=== PATIENT | female | born 1980 | race Hispanic/Latino ===

== ENCOUNTER 2016-09-24 06:45 | Emergency (ER) | payer OTHER ==
[~2016-09-24] VITALS: Ht 144.8 cm; Wt 68.2 kg
[~2016-09-24 06:45] MED LIST: NORCO1 TA1 PO; PERCOCET1 TA2 PO
[2016-09-24 07:26] LABS: HEMATOCRIT 27.5 % (37.0-47.0); HEMOGLOBIN 8.4 g/dl (12.0-16.0); IMMATURE GRANULOCYTES 0.8 % (0.0-1.0); MEAN CELL VOLUME 72.8 fL CALC (80.0-100.0); MEAN CORPUSCULAR HGB 22.2 pG CALC (26.0-32.0); MEAN CORPUSCULAR HGB CONC 30.5 g/L CALC (32.0-36.0); NEUT# 4.27 thou/uL (2.00-7.15); RED BLOOD COUNT 3.78 mill/uL (4.20-5.60); RED CELL DISTRI WIDTH 18.2 % (11.5-15.5)
[2016-09-24 07:43] LABS: ALBUMIN 4.2 g/dL (3.2-5.0); ALKALINE PHOSPHATASE 87 u/l (38-126); ANION GAP 18 (6-22 (CALC)); BILIRUBIN, TOTAL 0.2 mg/dL (0.0-1.4); BUN 6 mg/dL (7-17); BUN/CREATININE RATIO 10 (12-20 (CALC)); CALCIUM 8.8 mg/dL (8.4-10.2); CARBON DIOXIDE 21 mmol/l (22-30); CHLORIDE 115 mmol/l (95-108); CREATININE 0.6 mg/dL (0.5-1.0); ETHYL ALCOHOL 264 mg/dl (0-30); GFR > 60 ML/MIN (>=60 (CALC)); GFR FOR AFR.AMER. > 60 ML/MIN (>=60 (CALC)); GLUCOSE 106 mg/dL (65-105); POTASSIUM 3.8 mmol/l (3.5-5.1); SGOT/AST 30 u/l (14-36); SGPT/ALT 24 u/l (9-52); SODIUM 150 mmol/l (137-146); TOTAL PROTEIN 7.7 g/dL (6.3-8.2)
[2016-09-24] MEDS ORDERED: MOTRIN800 MG PO (09:09)
[2016-09-24] MEDS ORDERED: LORTAB 5-325 MG1 TAB PO (09:09)
[2016-09-24] MEDS ORDERED: FLEXERIL PO (09:09)
[2016-09-24 10:21] VITALS: BP 130/70
== END 2016-09-24 10:22 | disposition home or self-care (01) | DRG 897 ==
LOC: ED 06:45
PROVIDERS: Emergency Medicine
DX: F10.129 Alcohol abuse with intoxication, unspecified (principal); S32.029A Unspecified fracture of second lumbar vertebra, initial encounter for closed fracture; S32.039A Unspecified fracture of third lumbar vertebra, initial encounter for closed fracture; Y90.8 Blood alcohol level of 240 mg/100 ml or more; V47.6XXA Car passenger injured in collision with fixed or stationary object in traffic accident, initial encounter; Y92.488 Other paved roadways as the place of occurrence of the external cause
CPT/HCPCS: Q9967

== ENCOUNTER 2017-07-31 02:46 | Emergency (ER) | payer SELFPAY ==
[~2017-07-31] VITALS: Ht 144.8 cm; Wt 75.0 kg
[~2017-07-31 02:46] MED LIST changes: +FLEXERIL PO; +LORTAB 5-325 MG1 TAB PO; +MOTRIN800 MG PO
[2017-07-31 04:50] VITALS: BP 136/82
== END 2017-07-31 05:00 | disposition home or self-care (01) | DRG 605 ==
LOC: ED 02:46
DX: S80.02XA Contusion of left knee, initial encounter (principal); S20.229A Contusion of unspecified back wall of thorax, initial encounter; R55 Syncope and collapse; D64.9 Anemia, unspecified; E11.9 Type 2 diabetes mellitus without complications; F41.9 Anxiety disorder, unspecified; F17.210 Nicotine dependence, cigarettes, uncomplicated; W19.XXXA Unspecified fall, initial encounter; Z53.20 Procedure and treatment not carried out because of patient's decision for unspecified reasons

== ENCOUNTER 2019-03-29 01:13 | Emergency (ER) | payer SELFPAY ==
[~2019-03-29] VITALS: Ht 144.8 cm; Wt 90.0 kg
[2019-03-29 01:40] LABS: HEMATOCRIT 40.5 % (37.0-47.0); HEMOGLOBIN 13.5 g/dl (12.0-16.0); IMMATURE GRANULOCYTES 0.9 % (0.0-5.0); MEAN CELL VOLUME 87.9 fL CALC (80.0-100.0); MEAN CORPUSCULAR HGB 29.3 pG CALC (26.0-32.0); MEAN CORPUSCULAR HGB CONC 33.3 g/L CALC (32.0-36.0); NEUT# 6.62 thou/uL (2.00-7.15); RED BLOOD COUNT 4.61 mill/uL (4.20-5.60); RED CELL DISTRI WIDTH 15.5 % (11.5-15.5)
[2019-03-29 01:55] LABS: ALBUMIN 4.6 g/dL (3.2-5.0); ALKALINE PHOSPHATASE 97 u/l (38-126); ANION GAP 16 (6-22 (CALC)); BUN 11 mg/dL (7-17); BUN/CREATININE RATIO 21 (12-20 (CALC)); CARBON DIOXIDE 24 mmol/l (22-30); CHLORIDE 108 mmol/l (95-108); CREATININE 0.5 mg/dL (0.5-1.0); ETHYL ALCOHOL 240 mg/dl (0-30); GFR > 60 ML/MIN (>=60 (CALC)); GFR FOR AFR.AMER. > 60 ML/MIN (>=60 (CALC)); POTASSIUM 3.3 mmol/l (3.5-5.1); SGOT/AST 32 u/l (14-36); SODIUM 145 mmol/l (137-146); TOTAL PROTEIN 8.4 g/dL (6.3-8.2)
[2019-03-29 01:56] LABS: BILIRUBIN, TOTAL 0.4 mg/dL (0.0-1.4)
[2019-03-29 02:07] LABS: MYOGLOBIN 70 ng/mL (0 - 62)
[2019-03-29 04:31] LABS: URINE BILIRUBIN - DIPSTICK NEGATIVE (NEGATIVE); URINE BLOOD DIPSTICK NEGATIVE (NEGATIVE); URINE COLOR YELLOW; URINE GLUCOSE - DIPSTICK NEGATIVE (NEGATIVE); URINE KETONE NEGATIVE (NEGATIVE); URINE LEUK ESTERASE NEGATIVE (NEGATIVE); URINE NITRITE - DIPSTICK NEGATIVE (Negative); URINE PROTEIN - DIPSTICK NEGATIVE (NEG-TRACE); URINE UROBILINOGEN - DIPSTICK 0.2 E.U./dL (0.2)
[2019-03-29 04:35] LABS: COCAINE NEGATIVE (NEGATIVE); METHADONE NEGATIVE (NEGATIVE); TETRAHYDROCANNABIONOL POSITIVE (NEGATIVE)
[2019-03-29 04:36] LABS: BARBITURATES NEGATIVE (NEGATIVE); OXCYCODONE NEGATIVE (NEGATIVE); TRICYLIC ANTIDEPRESSANTS NEGATIVE (NEGATIVE)
[2019-03-29 05:00] VITALS: BP 100/52
== END 2019-03-29 05:10 | disposition home or self-care (01) | DRG 897 ==
LOC: ED 01:13
PROVIDERS: Emergency Medicine
DX: F10.129 Alcohol abuse with intoxication, unspecified (principal); F12.90 Cannabis use, unspecified, uncomplicated; E11.9 Type 2 diabetes mellitus without complications; F17.210 Nicotine dependence, cigarettes, uncomplicated

== ENCOUNTER 2023-06-10 18:56 | Observation (INO) | payer OTHER ==
[~2023-06-10] VITALS: Ht 144.8 cm; Wt 76.9 kg
[2023-06-10] VITALS (9 sets, daily range): BP systolic 102–129; BP diastolic 41–82
--- NOTE | 2023-06-10 19:10 | NUR ---
PATIENT TO RM 10 WITH CHARGE NURSE FOR TRIAGE WITH STEADY GAIT AT THIS TIME.
--- NOTE | 2023-06-10 19:15 | NUR ---
CHARGE NURSE NOTIFIED MD OF PATIENT STATUS AFTER STATED COMPLAINTS AND STATUS, MD NOTIFIES TO CALL STROKE ALERT.
--- NOTE | 2023-06-10 19:16 | NUR ---
STROKE ALERT CALLED AT THIS TIME.
--- NOTE | 2023-06-10 19:17 | NUR ---
ADMINISTRATIVE UNDERWRITER ACCOMPANYING STROKE ALERT AT THIS TIME, PATIENT TRANSPORTED TO CT AT THIS TIME, PATIENT UPDATED ON CONTINUOUS PLAN OF CARE, PATIENT VERBALIZES UNDERSTANDING, REMAINS ALERT AND ORIENTED AT THIS TIME.
--- NOTE | 2023-06-10 19:30 | NUR ---
INITIAL NIHS COMPLETE BY ASSEMBLER SHOW MOTOR, PATIENT NOTED TO HAVE NO FACIAL DEFECITS, CLEAR SPEECH NOTED, NO VISUAL DEFEICITS, PERRLA NOTED, ALERT AND ORIENTED X4, PATIENT NOTED TO HAVE (R) ARM WEAKNESS/PAIN TO PALPATATION, NOTED (R) ARM DRIFT DUE TO PAIN OF HOLDING ARM UP, PATIENT VERBALIZES (R) ARM IS MORE SENSITIVE TO PALPATATION STATES SEVERE PAIN, NO ADDITIONAL DRIFTS NOTED, PATIENT ABLE TO FOLLOW ALL COMMANDS WITHOUT DIFFICULTY, RESPIRATORY SERVICES MANAGER EQUAL AND STRONG, AWAITING CLEARANCE OF CT ROOM AT THIS TIME FOR TRANSFER.
[2023-06-10 19:42] LABS: BASO% 0.3 % (0-3); EOS% 1.5 % (0-8); HEMATOCRIT 37.8 % (37.0-47.0); HEMOGLOBIN 12.6 g/dl (12.0-16.0); IMMATURE GRANULOCYTES 0.5 % (0.0-5.0); LYMPH% 31.2 % (15-41); MEAN CORPUSCULAR HGB 31.1 pG CALC (26.0-32.0); MEAN CORPUSCULAR HGB CONC 33.3 g/dL CAL (32.0-36.0); MONO% 5.5 % (2-13); NEUT# 7.58 thou/uL (2.00-7.15); RED BLOOD COUNT 4.05 mill/uL (4.20-5.60); RED CELL DISTRI WIDTH 12.8 % (11.5-15.5)
[2023-06-10 19:44] LABS: MEAN CELL VOLUME 93.3 fL CALC (80.0-100.0)
[2023-06-10 19:57] LABS: ALBUMIN 4.3 g/dL (3.2-5.0); ALKALINE PHOSPHATASE 110 u/l (38-126); ANION GAP 13 (6-22 (CALC)); BILIRUBIN, TOTAL 0.4 mg/dL (0.02-1.3); BUN 16 mg/dL (7-17); BUN/CREATININE RATIO 38 (12-20 (CALC)); CALCULATED LDLCHOLESTEROL 51 mg/dL (62-129 (CALC)); CARBON DIOXIDE 25 mmol/l (22-30); CHLORIDE 104 mmol/l (95-108); CHOLESTEROL HDL RATIO 2.4 (<4.4 (CALC)); CREATININE 0.4 mg/dL (0.5-1.0); GFR FOR AFR.AMER. > 60 ML/MIN (>=60 (CALC)); GFR OTHER RACES > 60 ML/MIN (>=60 (CALC)); HDL CHOLESTEROL 80 mg/dL (39.0-59.0); POTASSIUM 3.9 mmol/l (3.5-5.1); SGOT/AST 28 u/l (14-36); SODIUM 138 mmol/l (137-146); TOTAL CHOLESTEROL 190 mg/dl (0-199); TOTAL PROTEIN 7.1 g/dL (6.3-8.2); TOTAL TRIGLYCERIDES 295 mg/dl (0-149); VLDL CHOLESTROL 59 mg/dl (1-41 (CALC))
--- NOTE | 2023-06-10 20:00 | NUR ---
SPOKE WITH DR. OPAL CULLEN, TELENEUROLOGIST AND HE STATES THAT HIS TELESTROKE MONITOR IS NOT OPERATIONAL. I QUESTIONED HOW HE WOULD LIKE TO PROCEDE W/ PATIENT PLAN OF CARE AND HE STATED THAT HE HAD ALREADY SPOKEN WITH DR. BRIGHT TO RELAY RECOMMENDATIONS, HAD SEEN THE CT'S, AND HAD CONDUCTED AN AUDIO EXAM. INSTRUCTED TO CALL HIM BACK IF DR. BRIGHT HAD ANY QUESTIONS. DR. BRIGHT NOTIFIED AND AWARE.
[2023-06-10 20:03] LABS: PROTHROMBIN TIME 9.3 SECONDS (9.0-12.5)
[2023-06-10 20:40] LABS: URINE BILIRUBIN - DIPSTICK Negative (NEGATIVE); URINE BLOOD DIPSTICK Negative (NEGATIVE); URINE GLUCOSE - DIPSTICK Negative (NEGATIVE); URINE KETONE Negative (NEGATIVE); URINE LEUK ESTERASE Negative (NEGATIVE); URINE NITRITE - DIPSTICK Negative (Negative); URINE PH 6.5 (4.5-8.0); URINE PROTEIN - DIPSTICK Negative (NEG-TRACE); URINE UROBILINOGEN - DIPSTICK 0.2 E.U./dL (0.2)
[2023-06-10 20:46] LABS: URINE COLOR Yellow
--- NOTE | 2023-06-10 21:00 | NUR ---
PATIENT CONTINUES WITH KNOWN DEFECITS, C/O PAIN RADIATING FROM (R) ARM TO (R) SIDE OF NECK, MD NOTIFIED OF PATIENT STATUS, AWAITING ALL FURTHER ORDERS/RESULTS, PATIENT UPDATED ON CONTINUOUS PLAN OF CARE WITH NO FURTHER QUESTIONS OR CONCERNS AT THIS TIME, FAMILY AT BEDSIDE FOR SUPPORT, VSS, WILL CONTINUE TO MONITOR AT THIS TIME, MEND ASSESSMENTS CONTINUED.
--- NOTE | 2023-06-10 22:05 | NUR ---
PATIENT MEDICATED PER ORDERS AT THIS, PATIENT CONTINUES WITH NOTED DEFECITS AT THIS TIME, PATIENT VOICES PAIN WHEN PALPATING (R) ARM AND (R) NECK, PATIENT UPDATED ON CONTINUOUS PLAN OF CARE, DENIES DIZZINESS OR VISION CHANGES, REMAINS ALERT AND ORIENTATED X4, PATIENT UPDATED ON CONTINUOUS PLAN OF CARE WITH NO FURTHER QUESTIONS AT THIS TIME.
--- NOTE | 2023-06-10 23:00 | NUR ---
PATIENT VERBALIZES MODERATE RELIEF OF PAIN AT THIS TIME, PATIENT CONTINUES WITH KNOWN DEFICITS, VERBALIZES CONTINUED WEAKNESS AND SENSATION TO (R) ARM, PATIENT SHOWS NO ADDITIONAL DEFECITS, PATIENT DEMONSTRATED STEADY GAIT WHILE AMBULATING TO SEVERAL TIMES FOR VOID AT THIS TIME. PATIENT UPDATED ON CONTINUOUS PLAN OF CARE WITH NO FURTHER QUESTIONS OR CONCERNS, AWAITING ROOM ASSIGNMENT UPSTAIRS AT THIS TIME.
--- NOTE | 2023-06-10 23:56 | NUR ---
REPORT CALLED TO ROLF SALMERON AT THIS TIME, PATIENT AWAITING TRNSPORT UPSTAIRS TO [facility].
[2023-06-11] VITALS (7 sets, daily range): BP systolic 94–126; BP diastolic 43–65
--- NOTE | 2023-06-11 00:10 | NUR ---
PATIENT TRANSPORTED TO [facility] AT THIS TIME WITH TRANSPORTER, PATIENT VERBALIZES UNDERSTANDING WITH NO FURTHER QUESTIONS OR CONCERNS AT THIS TIME, PATIENT REMAINS WITH (R) ARM PAIN/WEAKNESS AND SENSATATION DEFECITS. PRIMARY [facility] NURSE AWARE.
--- NOTE | 2023-06-11 01:00 | NUR ---
PATIENT ADMITTED FROM ER VIA STRETCHER WITH ER STAFF ASHLI ROMERO IN ATTENDANCE. PATIENT IS [place] SPEAKING ONLY AND Sergio CHUNG IS HERE TO TRANSLATE FOR ADMISSION. PATIENT IS ABLE TO TRANSFER FROM STRETCHER TO THE STANDING SCALE AND THEN TO BED. ALERT ANBD ORIENTEDX3. PATIENT STATES THAT SHE CAME TO THE ER TONIGHT DUE TO PAIN AND NUMBNESS TO RIGHT ARM UP TO HER NECK. STATEDS SOME RELIEF FROM MUSCLE RELAXER GIVEN IN ER. STATES THAT SHE TAKES THEM AT HOME. STATES THAT SHE DOES HAVE HX OF SEIZURE BUT IS ON NO MEDS AT THIS TIME FOR SEIZURES. STATES THAT HER LAST SEIZURE WAS OVER 2 YEARS AGO. DEN IES ANY MEDS AT THIS TIME AT HOME. DENIES BEING DIAB AND GLUCOSE IN ER WAS NORMAL WITH NORMAL A1C. PATIENT DOES STATESA THAT THE NUMBNESS IS IMPROVED BUT PAIN IS STILL THERE. PATIENT WITH LIMITED ABILITY TO RAISE HER RIGHT ARM NOT DUIE TO WEAKNESS BUT BECAUSE OF PAIN. REMAINDER OR NEURO ASSESSMENT IS WNL. SPEECH IS CLEAR. ABLE TO IDENTIFY ALL PICTURES WHEN ASKED. PATIENT IS NPO AT THIS TIME AND WAS ADVISED OF SUCH. LUNGS ARE CLEAR. ABD IS SOFT WITH ACTIVE BS. LAST BM WAS YESTERDAY. DENIES ANY DIFFICULTY WITH URINATION. LAST MENSTRAL CYCLE WAS LAST MONTH. NO PERIPHERAL EDEMA NOTED AND PULSES ARE PALPABLE. ORIENTED TO ROOM AND SURROUNDINGS. INSTRUCTED ON USE OF NURSE CALL LIGHT AND TV REMOTE. SAFETY PRECAUTIONS REINFORCED. CALL LIGHT IN REACH. WILL CONT TO MONITOR.
[2023-06-11] MEDS ORDERED: NEURONTIN100 MG PO (04:02)
--- NOTE | 2023-06-11 04:30 | NUR ---
PATIENT RESTING IN BED AT THIS TIME WITH EYES CLOSED. RESPS ARE EVEN AND UNLABORED. IVF NS PATENT AND INFUSING VIA RAC AT 80CC/HR. SITE REMAINS HEALTHY. TELE MONITOR IN PLACE WITH LAST READING SR-70. LAST TROP AT 0100 WAS NEG. REMAINS NPO ORDERED. CALL LIGHT IN REACH. WILL CONT TO MONITOR.
[2023-06-11 06:41] LABS: BASO% 0.4 % (0-3); EOS% 1.7 % (0-8); HEMOGLOBIN 12.3 g/dl (12.0-16.0); IMMATURE GRANULOCYTES 0.3 % (0.0-5.0); LYMPH% 32.2 % (15-41); MEAN CELL VOLUME 93.2 fL CALC (80.0-100.0); MEAN CORPUSCULAR HGB CONC 33.2 g/dL CAL (32.0-36.0); MONO% 4.6 % (2-13); NEUT# 6.21 thou/uL (2.00-7.15); NEUT% 60.8 % (42-76); RED BLOOD COUNT 3.97 mill/uL (4.20-5.60); RED CELL DISTRI WIDTH 12.9 % (11.5-15.5)
[2023-06-11 06:58] LABS: ALBUMIN 3.8 g/dL (3.2-5.0); ALKALINE PHOSPHATASE 92 u/l (38-126); BUN 12 mg/dL (7-17); BUN/CREATININE RATIO 30 (12-20 (CALC)); CARBON DIOXIDE 24 mmol/l (22-30); CHLORIDE 106 mmol/l (95-108); CREATININE 0.4 mg/dL (0.5-1.0); GFR FOR AFR.AMER. > 60 ML/MIN (>=60 (CALC)); GFR OTHER RACES > 60 ML/MIN (>=60 (CALC)); MAGNESIUM 1.9 mg/dL (1.6-2.3); POTASSIUM 4.2 mmol/l (3.5-5.1); SGOT/AST 23 u/l (14-36); TOTAL PROTEIN 6.3 g/dL (6.3-8.2)
[2023-06-11 07:04] LABS: BILIRUBIN, TOTAL 0.6 mg/dL (0.02-1.3); SODIUM 125 mmol/l (137-146)
--- NOTE | 2023-06-11 07:57 | NUR ---
reveived report from ari. pt currently complaining of pain in right arm and neck at a 6 on a 0-10 pain level. swallow evel performed with no issues, no coughing. AOX3, NIH=1 for right upper arm.
--- NOTE | 2023-06-11 12:00 | NUR ---
PT AOX2 LAYING IN BED, PAIN IN RIGHT ARM/NECK AT A 4 ON A 0-10 PAIN SCALE. PT AND WAITING PAITENTLY FOR DOCTOR TO ROUND.
--- NOTE | 2023-06-11 13:06 | NUR ---
SPOKE WITHMARGARET BILLS IN [facility] TO THIS AM'S NA LEVEL OF 125. YESTERDAY IN THE ED IT WAS 138. MARGARET ORDERING LAB TO DUE A REDRAW.
--- NOTE | 2023-06-11 15:00 | NUR ---
PT MEDICATED FOR MRI. PT LEFT THE FLOOR VIA WHEELCHAIR TRANSPORT FOR MRI.
[2023-06-11] MEDS ORDERED: TYLENOL500 MG PO (18:14)
[2023-06-11] MEDS ORDERED: AMOX/K CLAV875 M1 PO (18:14)
--- NOTE | 2023-06-11 20:07 | NUR ---
PATIENT AWAKE ALERT AND ORIENTEDX3 SITTING ON THE SWIDE OF THE BED. FAMILY AT BEDSIDE. CHARAN Quinonez IS [place] SPEAKING ONLY. S/O HERE AND ABLE TO TRANSLATE. IV SITE TO [facility] WAS D/C'ED WITH CATH INTACT FOR DISCHARGE. TELE MONITOR REMOVED. PATIENT GIVEN DISCHARGE INSTRUCTIONS WITH PERSCRIPTIONS. PATIENT INSTRUCTED TO F/UP WITH ENT PER INSTRUCTIONS. PATIENT PROVIDED DISCHARGE INSTRUCTIONS PACKET. CHARAN Quinonez DISCHARGED HOME VIA WHEELCHAIR WITH FAMILY.
== END 2023-06-11 20:00 | disposition home or self-care (01) ==
LOC: ED 18:56 → MS2 21:22
PROVIDERS: Family Medicine; ADMIT Student in an Organized Health Care Education/Training Program; ATTEND Student in an Organized Health Care Education/Training Program
DX: M79.601 Pain in right arm (principal); R20.2 Paresthesia of skin; R29.810 Facial weakness; R47.81 Slurred speech; H65.01 Acute serous otitis media, right ear; E11.9 Type 2 diabetes mellitus without complications; F41.9 Anxiety disorder, unspecified; F17.200 Nicotine dependence, unspecified, uncomplicated
CPT/HCPCS: G0378; Q9967